=== PATIENT | male | born 1955 | race Two or more races ===

== ENCOUNTER 2022-09-05 09:57 | Inpatient (IN) | payer OTHER ==
[~2022-09-05] VITALS: Ht 170.2 cm; Wt 79.8 kg
--- NOTE | 2022-09-05 10:15 | NUR ---
PAtient AOx4 able to express his concerns. Discussed plan of care, patient verbalized agreement. IV Placed, blood collected and sent to lab. Safety precautions followed.
[2022-09-05] MEDS ORDERED: ASPIRIN EC 325 MG TABLET.DR PO ONE (10:30)
[2022-09-05 10:31] LABS: WHITE BLOOD COUNT (AUTO) 7.2 K/uL (4.3-11.0)
[2022-09-05] MEDS ORDERED: ASPIRIN 325 MG TABLET ONE (10:31)
[2022-09-05 10:40] LABS: BASOPHILS # (AUTO) 0.4 K/uL (0.0-0.2); EOSINOPHILS % (AUTO) 2.9 % (0.0-6.0); HEMATOCRIT 45 % (39-51); HEMOGLOBIN 15.2 g/dL (13.5-17.5); LYMPHOCYTES % (AUTO) 14.1 % (20.0-44.0); MEAN CORPUSCULAR HGB CONC 34 g/dl (31.0-36.0); MEAN CORPUSCULAR VOLUME 86 fL (80-96); MONOCYTES # (AUTO) 0.4 K/uL (0.1-1.30); MONOCYTES % (AUTO) 5.1 % (2.0-12.0); NEUTROPHILS # (AUTO) 5.2 K/uL (1.8-8.9); NEUTROPHILS % (AUTO) 72.1 % (43.0-81.0); PLATELET COUNT (AUTO) 176 K/uL (150-450); RED BLOOD CELL COUNT(AUTO) 5.22 MIL/uL (4.5-6.0)
[2022-09-05 10:43] LABS: CARBON DIOXIDE 31 mmol/L (21-32); CHLORIDE 105 mmol/L (98-107); CREATININE 1.2 mg/dL (0.6-1.3); GLUCOSE 86 mg/dL (74-106); SODIUM SERUM 138 mmol/L (136-145); UREA NITROGEN, BLOOD 17 mg/dL (7-18)
--- NOTE | 2022-09-05 10:51 | NUR ---
COVID Swab collected and sent to lab
[2022-09-05 10:55] LABS: BASOPHILS % (AUTO) 5.8 % (0.0-2.0)
[2022-09-05 10:56] LABS: ALANINE AMINOTRANSFERASE 30 U/L (12-78); ALBUMIN 3.8 g/dL (3.4-5.0); ALKALINE PHOSPHATASE 59 U/L (46-116); ASPARTATE AMINOTRANSFERASE 26 U/L (15-37); BILIRUBIN,DIRECT 0.1 mg/dL (0.0-0.2); BILIRUBIN,TOTAL 0.5 mg/dL (0.2-1.0); CALCIUM, SERUM 8.5 mg/dL (8.5-10.1); TOTAL PROTEIN, SERUM 7.5 g/dL (6.4-8.2)
--- NOTE | 2022-09-05 12:17 | NUR ---
report given to Stefany Chinchilla
--- NOTE | 2022-09-05 13:29 | NUR ---
MOVED TO INPATIENT ROOM SAFELY PER ACLS PROTOCOL.
[2022-09-05] MEDS ORDERED: LOSA50TA39 PO (14:11)
[2022-09-05] MEDS ORDERED: ONDANSETRON HCL/PF 4 MG/2 ML VIAL IVP PRN (14:30)
[2022-09-05] MEDS ORDERED: ENOXAPARIN SODIUM 40 MG/0.4 ML DISP.SYRIN SQ SCH (14:30)
[2022-09-05] MEDS ORDERED: ACETAMINOPHEN 325 MG TABLET PO PRN (14:30)
--- NOTE | 2022-09-05 14:30 | NUR ---
RN OPENING NOTE PATIENT TRANSFER FROM [place] WITH NO SING OF DISTRESS, V/S SIGN TAKE STABLE RECORDED. PATIENT WAS ORIENTED TO ROOM SETUP AND EDUCATED ON THE USE OF CALL LIGHT. PATIENT AWAKE IN BED RESTING, A/O X 4. NO S/S OF PAIN NOTED AT THIS TIME. ON ROOM AIR, BREATHING EVEN UNLABORED, NO DISTRESS OR SHORTNESS OF BREATH NOTED. IV ACCESS LAC #20G INTACT, PATENT AND FLUSHING WELL. FALL AND SAFETY MEASURES IN PLACE, BED ALARM ON, BED IN LOW AND LOCK POSITION, CALL LIGHT AND TABLE WITHIN EASY REACH, SIDE RAILS UP X2. WILL CONTINUE TO MONITOR. Addendum: 09/05/22 at 1857 by Stefany Curiel RN PATIENT REFUSED SKIN ASSESSMENT AND PICTURES.
[2022-09-05 18:47] VITALS: BP 132/88
--- NOTE | 2022-09-05 18:57 | NUR ---
FIRE BEHAVIOR ANALYST NOTE PATIENT LEFT AMA, DOCTOR INFORMED, PATIENT WAS EDUCATED ON THE BENEFIT AND RISK BUT PATIENT DECIDED LEAVE AMA. REFUSED VITAL SIGNS BEFORE DISCHARGE, REFUSED SKIN ASSESSMENT AND PICTURES. NAME BANS REMOVED. EXTERNAL CUFF SETTER OVERLOCK REMOVED AND RETURNED TO TELE DESK. ALL BELONGING CHECKED AND BELONGING LIST SIGNED. HEALTH TEACHING INSTRUCTIONS GIVEN AND VERBALIZED UNDERSTANDING. INSTRUCTED PATIENT TO FOLLOW UP WITH DOCTOR, AND INCASE OF EMERGENCY TO GO TO NEAREST ER OR CALL 911. PATIENT LEFT UNIT AMBULATING WITH NO SIGN OF DISTRESS ACCOMPANIED BY RN TO THE LOBBY. CHARGE NURSE AWARE.
[2022-09-05] MEDS ORDERED: ATORVASTATIN 10 MG TABLET PO SCH (22:00)
[2022-09-06] MEDS ORDERED: PANTOPRAZOLE 40 MG TABLET.DR PO SCH (07:30)
[2022-09-06] MEDS ORDERED: ASPIRIN 81 MG TAB.CHEW PO SCH (09:00)
== END 2022-09-05 17:40 | disposition left against medical advice (07) | DRG 311 ==
LOC: ER 10:04 → TELE 13:41
PROVIDERS: ADMIT Nurse Practitioner Acute Care; ATTEND Nurse Practitioner Acute Care
DX: I24.9 Acute ischemic heart disease, unspecified (principal); Z94.1 Heart transplant status; I25.10 Atherosclerotic heart disease of native coronary artery without angina pectoris; I10 Essential (primary) hypertension; Z53.29 Procedure and treatment not carried out because of patient's decision for other reasons; Z20.822 Contact with and (suspected) exposure to COVID-19
CPT/HCPCS: 36415; 71045-TC; 80048-TC; 80076-TC; 83880; 84484-TC; 85025-TC; 93307-TC; C9803; G0378; J1650